=== PATIENT | female | born 1985 | race Caucasian/White ===

== ENCOUNTER 2017-11-01 21:00 | Inpatient (IN) | payer MEDICAID, OTHER, SELFPAY ==
[~2017-11-01 21:00] MED LIST: Acetaminophen 500 MG TAB PO PRN; Ondansetron HCl/PF 4 MG/2 ML Vial IVP PRN; Promethazine HCl 25 MG/ML VIAL IM PRN
[2017-11-01 22:16] VITALS: BMI 34.2
[2017-11-01] MEDS ORDERED: Ondansetron HCl/PF 4 MG/2 ML Vial IVP PRN (22:30)
[2017-11-01] MEDS ORDERED: Methylergonovine 0.2 MG/ML VIAL IM PRN (22:30)
[2017-11-01] MEDS ORDERED: LR / Pitocin 40 units/1000 ml 1,000 ML IV PRN (22:30)
[2017-11-01] MEDS ORDERED: Ibuprofen 800 MG TAB PO PRN (22:30)
[2017-11-01] MEDS ORDERED: Zolpidem Tartrate 5 MG TAB PO PRN (22:30)
[2017-11-01] MEDS ORDERED: Carboprost 250 MCG/ML AMP IM PRN (22:30)
[2017-11-01] MEDS ORDERED: Promethazine HCl 25 MG/ML VIAL IM PRN (22:30)
[2017-11-01] MEDS ORDERED: Lidocaine 1% (PF) 30 ML VIAL SC PRN (22:30)
[2017-11-01] MEDS ORDERED: Acetaminophen 500 MG TAB PO PRN (22:30)
[2017-11-01] MEDS ORDERED: HYDROcodone/Acetaminophen 5/325 mg Tablet PO PRN ×2 (22:30)
[2017-11-01] MEDS ORDERED: Misoprostol 200 MCG TAB PR PRN (22:30)
[2017-11-01] MEDS: Lactated Ringer's 1,000 ML IV SCH (22:35)
--- NOTE | 2017-11-01 23:01 | PDOC.LDHP ---
Labor and Delivery H&P Chief complaint: scheduled induction HPI: 32yo At 40.5wks by 14.2wk u/s presents for postdates IOL. Patient reports no VB, LOF, and good FM. Denies ctx. Current gestational age (weeks): 40 (5days) Due date: 10/26/17 Dating criteria: first trimester ultrasound Grav: 2 Para: 1 OB History Details: in [place] in 2009, infant SGA Current complications: other (BV and felicita in , anemia of ) Abnormal US findings: No Past Medical History: None Current medications: pre-cirilo vitamins Previous surgical history: none Social history: none - Physical Exam Vital signs reviewed and normal: yes General: NAD Heart: RRR Lungs: CTAB Abdomen: gravid Extremeties: no edema FHT: category 1, variability present [place] contractions every: none - Vaginal Exam cm dilated: 1 Effacement: 75% Station: -2 - OB Labs Blood type: O RH: positive Antibody Screen: negative HIV: negative RPR: negative HEPSAg: negative 1 hour GCT: negative GBS: negative Rubella: immune - Assessment L&D Assessment: medically indicated induction at 40.5w by 14.2w u/s presents for post-dates IOL. only complicated by BV, felicita, and anemia of pregancy. Hx of SGA with u/s wnl during this . Patient with Cat 1 strip, no ctx. SVE 1/75% /-2. Placed cytotec. Will check in 3h and give 2nd dose of cytotec if able. - Plan Plan: admit to L&D, cervical ripening, labor augmentation if indicated <Latisha Puentes - Last Filed: 11/01/17 23:13> <Celia Espitia - Last Filed: 11/01/17 23:33> Allergies/Adverse Reactions: Allergies Allergy/AdvReac Type Severity Reaction Status Date / Time No Known Allergies Allergy Verified 11/01/17 22:21 Attending Addendum - Attending Addendum Date/Time: 11/01/17 3250 I personally evaluated the patient and discussed the management with Dr. Puentes I agree with the History, Examination, Assessment and Plan documented above with any addition or exceptions noted below- 32 year old at 40 5/7 weeks presents for induction of labor. denies any ctx, LOF, VB. (+) FM. Denies any COURTNEY, visual changes. Taking PNV. Afebrile VSS. SVE- 1/thick/-2 per resident. Category 1 FHTs. [place]- no ctx. A/P: IUP@ 40 5/7 weeks for induction of labor. Cytotec placed for cervical ripening. Recheck in 3-4 hours. GBS negative <Celia Espitia - Last Filed: 11/01/17 23:33>
[2017-11-01 23:02] LABS: Hemoglobin 11.8 g/dL (12.0-16.0); Mean Corpuscular HGB CONC 33.4 g/dL (32.0-36.0); Mean Corpuscular Hemoglobin 27.8 pg (27.0-31.0); Mean Corpuscular Volume 83.4 fl (81.0-99.0); Mean Platelet Volume 8.6 fL (7.4-10.4); Platelet Count 233 thou/uL (130-400); RBC Distribution Width 14.7 % (11.5-14.5); Red Blood Cell (RBC) Count 4.24 mill/uL (4.20-5.40); White Blood Cell (WBC) Count 9.5 thou/uL (4.8-10.8)
[2017-11-01] MEDS: Misoprostol 100 MCG TAB VAG SCH (23:09)
[2017-11-01 23:38] LABS: HBSAg Index 0.57 S/CO (0-0.99); Hep B Surf Ag Non-Reactive S/CO (NonReactive); Syphilis Antibody Nonreactive (Nonreactive); Syphilis Antibody Index 0.07 S/CO (<1.00 Non-Reactive)
[2017-11-02] MEDS: Misoprostol 100 MCG TAB VAG SCH ×4 (02:22→23:05)
[2017-11-02] MEDS: Lactated Ringer's 1,000 ML IV SCH ×3 (04:41→23:06)
--- NOTE | 2017-11-02 05:17 | PDOC.LDPN ---
Labor & Delivery Progress Note - Subjective Subjective: painful contractions - Objective Vital signs reviewed and normal: yes General: breathing through contractions Uterine fundus: palpable contractions Dilation: 3 Effacement: 25% Station: -2 FHT: category 1 [place] contractions every: q1-3min - Assessment (1) Term Code(s): Z34.80 - ENCOUNTER FOR SUPRVSN OF NORMAL , UNSP TRIMESTER Current Visit: Yes Status: Acute Comment: 32yo at 40.5w by 14.2u/s presents for postdates IOL. Patient with cat 1 strip. S/p cytotec x2. Tachysystole at this point, but favorable cervix for pitocin with next check. Plan: continue plan of care
--- NOTE | 2017-11-02 08:05 | PDOC.LDPN ---
Labor & Delivery Progress Note - Subjective Subjective: painful contractions - Objective Vital signs reviewed and normal: yes General: breathing through contractions Uterine fundus: palpable contractions SVE: 4/80%/-1 BBOW FHT: category 1, early decelerations [place] contractions every: q2 min Plan: continue plan of care -: A/P: IUP@ 40 6/7 weeks now with favorable cervix- Plan for AROM and pitocin augmentation if needed. Reassuring FHTs.
[2017-11-02] MEDS ORDERED: Bisacodyl 10 MG SUPP PR PRN (12:38)
[2017-11-02] MEDS ORDERED: Adacel (T-DAP) 0.5 ML VIAL IM ONE (12:38)
[2017-11-02] MEDS ORDERED: LR / Pitocin 40 units/1000 ml 1,000 ML IV SCH (12:38)
[2017-11-02] MEDS ORDERED: Benzocaine/Menthol 20-0.5% 60 ML CAN TOP PRN (12:38)
[2017-11-02] MEDS ORDERED: Milk Of Magnesia 30 ML UDCUP PO PRN (12:38)
[2017-11-02] MEDS ORDERED: Lanolin Ointment 7 GM TUBE TOP PRN (12:38)
--- NOTE | 2017-11-02 12:59 | PDOC.LDPN ---
Labor & Delivery Progress Note - Subjective Subjective: comfortable, painful contractions - Objective Vital signs reviewed and normal: yes General: NAD, resting Uterine fundus: non tender SVE: Arthur Dilation: 5 Station: 0 FHT: category 1, early decelerations [place] contractions every: 2-3 min Procedures: AROM AROM: clear fluid (no fluid initially, clear bloody fluid with contractions) - Assessment (1) Term Code(s): Z34.80 - ENCOUNTER FOR [facility] OF NORMAL , UNSP TRIMESTER Current Visit: Yes Status: Acute Comment: 32yo at 40.5w by 14.2u/s presents for postdates IOL. Patient with cat 1 strip. S/p cytotec x2. Tachysystole at this point, but favorable cervix for pitocin with next check. AROM at 1020 am, clear fluid Plan: continue plan of care -: This above note was written based on exam findings and procedures done at 1020 on 11/02/17.
--- NOTE | 2017-11-02 13:50 | DN-2 ---
DELIVERING PHYSICIAN: Dr. Vega Gibson. ATTENDING PHYSICIAN: Dr. Emi Loyola. ASSISTING PHYSICIAN: Dr. Domonique Conti. PROCEDURE: Spontaneous vaginal delivery. ANESTHESIA: Local for repair. ESTIMATED BLOOD LOSS: 400 mL. PREOPERATIVE DIAGNOSIS: Term intrauterine in labor. POSTOPERATIVE DIAGNOSIS: Term intrauterine , delivered. INDICATIONS: A 32-year-old female, G2, P1-0-0-1, now P2-0-0-2 at 40 and 5 weeks, who delivered a via ble female at 11:00 a.m. on 11/02/2017. Following an uneventful antepartum course, a vigorous female was delivered over an intact perineum in the occipitoanterior position. Anterior shoulder and then remainder of body delivered. No nuchal c ord. The head was held down and mouth and nares were bulb suctioned. Cord clamped cut and cord bloo d collected. Placenta delivered intact with 3-vessel cord noted. Fundal massage was performed and t he fundus was firm. The cervix and vagina were inspected. There were no cervical lacerations in the event. Vagina had a second degree laceration and there was a second degree perineal laceration. La ceration was noted and repaired with 3-0 Vicryl in the usual fashion with good approximation and hemo stasis after local anesthetic was injected at the site. Infant went to nursery in good condi tion for routine care. Apgars were 9 and 9 at 1 and 5 minutes respectively. The patient tolerated d elivery well and went to for routine recovery and care.
[2017-11-02] MEDS: Ibuprofen 800 MG TAB PO SCH ×2 (20:04)
[2017-11-02] MEDS: Ferrous Sulfate 325 MG TAB PO SCH (20:05)
[2017-11-02] MEDS: Docusate Calcium (SURFAK) 240 MG CAP PO SCH (20:05)
--- NOTE | 2017-11-02 20:43 | PDOC.OPDEL ---
OB Operative/Delivery Note Delivery Dr/Surgeon: Arthur/Shalom Tolbert/Nir Pre-Delivery Diagnosis: elective induction Procedure/Post Delivery Dx: spontaneous vaginal delivery Weeks gestation: 40 Anesthesia: local - Findings A Sex: female - 1 min: 9 - 5 min: 9 - Additional Findings/Plan Placenta delivered: spontaneous Repaired Obstetrical Laceration: 2nd degree (2nd degree perinal) Estimated blood loss: 400 ml Post delivery plan: routine recovery (I was present for and supervised entire delivery and perineal laceration repair by Drs. Gibson and Shalom Tolbert. Please see their notes for complete details.)
[2017-11-03] MEDS: Misoprostol 100 MCG TAB VAG SCH ×2 (05:28→09:36)
[2017-11-03] MEDS: Ibuprofen 800 MG TAB PO SCH ×2 (05:29→14:22)
[2017-11-03] MEDS ORDERED: Prenatal Vitamin 1 TAB PO SCH (09:00)
--- NOTE | 2017-11-03 09:11 | PDOC.PP ---
Post Progress Note Post Day #: 1 Subjective: 32 yo who came in at 40.5wks, now s/p to a TAGA female on 11/02 at 1100 , with a second degree tear, repaired with good hemostasis. O/N: Pt did well overnight. No acute events overnight. This am: ambulating, passing flatus, tolerating PO, pain controlled and minimal lochia. PO intake tolerated: yes Flatus: yes Ambulation: yes Vital Signs (12 hours) Temp Pulse Resp BP Pulse Ox 11/03/17 05:31 97.7 F 83 18 102/55 L 98 11/03/17 04:20 98.2 F 86 18 114/61 98 11/02/17 23:15 98.3 F 81 18 99/53 L 98 Weight Weight 79.379 kg - Physical Examination General: NAD Cardiovascular: no m/r/g, RRR Respiratory: clear to auscultation bilaterally Abdominal: + bowel sounds, lochia (minimal) Fundus firm & at: umbilicus Neurological: no gross focal deficits Psychiatric: A&Ox3, normal affect Result Diagrams: 11/01/17 22:16 Additional Labs: Post Labs Blood Type O POSITIVE 11/01/17 22:16 Hep Bs Antigen Non-Reactive S/CO (NonReactive) 11/01/17 22:16 (1) Post term , delivered Code(s): O48.0 - POST-TERM Status: Acute - Assessment/Plan 32 yo [id number] delivered via yesterday (11/02) at 1100 to a TAGA female, doing well. -Ambulating, tolerating PO, pain controlled, minimal bleeding. -Okay to discharge today after 24 hours. Baby is pending 24hr bili. -Recommend follow-up with PNC in 2-4 weeks. <Macy Salas - Last Filed: 11/03/17 09:09> Vital Signs (12 hours) Temp Pulse Resp BP Pulse Ox 11/03/17 08:00 98.3 F 79 18 100/57 L 11/03/17 05:31 97.7 F 83 18 102/55 L 98 11/03/17 04:20 98.2 F 86 18 114/61 98 Weight Weight 79.379 kg Result Diagrams: 11/01/17 22:16 Additional Labs: Post Labs Blood Type O POSITIVE 11/01/17 22:16 Hep Bs Antigen Non-Reactive S/CO (NonReactive) 11/01/17 22:16 <Emi Loyola - Last Filed: 11/03/17 12:26> Attending Addendum - Attending Addendum Date/Time: 11/03/17 8425 I personally evaluated the patient and discussed the management with Dr. Small I agree with the History, Examination, Assessment and Plan documented above with any addition or exceptions noted below. ppd#1 s/p - recovering well. No complaints. Stable for d/c home today if baby bili normal. <Emi Loyola - Last Filed: 11/03/17 12:26>
[2017-11-03] MEDS: Ferrous Sulfate 325 MG TAB PO SCH (09:36)
[2017-11-03] MEDS: Lactated Ringer's 1,000 ML IV SCH (09:36)
[2017-11-03] MEDS: Docusate Calcium (SURFAK) 240 MG CAP PO SCH (09:37)
[2017-11-03 16:07] VITALS: BP 106/58; TEMP 98.6
== END 2017-11-03 16:00 | disposition home or self-care (01) | DRG 775 ==
LOC: L&D 21:17 → 3SW 11-02 14:44
PROVIDERS: ADMIT Family Medicine; ATTEND Family Medicine
PROC: 10E0XZZ Delivery of Products of Conception, External Approach (ICD-10-PCS; principal; 2017-11-02)
PROC: 3E0P7VZ Introduction of Hormone into Female Reproductive, Via Natural or Artificial Opening (ICD-10-PCS; 2017-11-02)
PROC: 10907ZC Drainage of Amniotic Fluid, Therapeutic from Products of Conception, Via Natural or Artificial Opening (ICD-10-PCS; 2017-11-02)
DX: O48.0 Post-term pregnancy (principal); O70.1 Second degree perineal laceration during delivery; Z37.0 Single live birth; Z3A.40 40 weeks gestation of pregnancy; O76 Abnormality in fetal heart rate and rhythm complicating labor and delivery
CPT/HCPCS: 85027; 86780; 87340; J0595; J2001